=== PATIENT | female | born 1990 | race American Indian/Alaskan Native ===

== ENCOUNTER 2017-06-21 15:37 | Emergency (ER) | payer MEDICAID ==
[2017-06-21 17:54] LABS: Basophils % (Auto) 0.4 % (0.0-1.8); Eosinophils % (Auto) 0.9 % (0.0-4.3); Mean Corpuscular HGB Conc 33 % (30-34); Mean Corpuscular Hemoglobin 32 pg (28-32); Mean Corpuscular Volume 97 fl (79-97); Platelet Count 192 K/mm3 (140-440); Red Blood Count 4.02 M/mm3 (3.65-5.03); Red Cell Distribution Width 11.9 % (13.2-15.2); White Blood Count 5.7 K/mm3 (4.5-11.0)
[2017-06-21 18:17] LABS: Alanine Aminotransferase 12 units/L (7-56); Albumin 4.3 g/dL (3.9-5); Albumin/Globulin Ratio 1.6 %; Alkaline Phosphatase 77 units/L (35-129); Anion Gap 19 mmol/L; BUN/Creatinine Ratio 26; Blood Urea Nitrogen 13 mg/dL (7-17); Calcium 8.9 mg/dL (8.4-10.2); Carbon Dioxide 24 mmol/L (22-30); Chloride 103.3 mmol/L (98-107); Glucose 71 mg/dL (65-100); Potassium 3.9 mmol/L (3.6-5.0); Sodium 142 mmol/L (137-145)
[2017-06-21 20:32] LABS: Bacteria,Urine 1+ /HPF (Negative); Bilirubin,Urine NEG (Negative); Blood,Urine NEG (Negative); Ketones,Urine 20 mg/dL (Negative); Leukocyte Esterase,Urine LG (Negative); Mucus,Urine 3+ /HPF; Nitrite,Urine NEG (Negative); Urobilinogen,Urine < 2.0 mg/dL (<2.0)
--- NOTE | 2017-06-21 21:00 | Emergency Department Report ---
ED Seizure HPI - General Chief Complaint: Seizure Stated Complaint: SEIZURE Time Seen by Provider: 06/21/17 18:10 Source: patient, EMS Mode of arrival: Stretcher Limitations: Altered Mental Status - History of Present Illness Initial Comments: Patient with history of seizures beginning in December 2016. She has seen neurology and normal EEG. She denies any new stress. She has recently had her keppra increased. She felt odd last night with 6 seizures and then had one today at work. She feels funny with an aura after which she will have a seizure. Ativan has helped in the past. Complaint: seizure -: days(s) (2) Description of Episode: tonic-clonic movement -: minutes(s) (2) Witnessed:: Yes Trauma: No Seizure History: known seizure disorder, compliant with medication Place: home, work Possible Precipitating Event: stress Associated Symptoms: denies other symptoms Treatments Prior to Arrival: none - Related Data Home Medications Medication Instructions Recorded Confirmed Last Taken levETIRAcetam [Keppra] 500 mg PO 06/21/17 06/21/17 10:00 Previous Rx's Medication Instructions Recorded Last Taken Type Cephalexin [Keflex] 500 mg PO Q8HR 10 Days #30 cap 06/21/17 Unknown Rx LORazepam [Ativan] 1 mg PO BID 5 Days #10 tab 06/21/17 Unknown Rx Allergies Allergy/AdvReac Type Severity Reaction Status Date / Time Unable to Assess Allergy Unverified 06/21/17 15:48 ED Review of Systems ROS: Stated complaint: SEIZURE Other details as noted in HPI Constitutional: denies: chills, fever Eyes: denies: eye pain, eye discharge, vision change ENT: denies: ear pain, throat pain Respiratory: denies: cough, shortness of breath, wheezing Cardiovascular: denies: chest pain, palpitations Endocrine: no symptoms reported Gastrointestinal: denies: abdominal pain, nausea, diarrhea Genitourinary: denies: urgency, dysuria, discharge Musculoskeletal: denies: back pain, joint swelling, arthralgia Skin: denies: rash, lesions Neurological: headache, paresthesias. denies: weakness Psychiatric: denies: anxiety, depression Hematological/Lymphatic: denies: easy bleeding, easy bruising ED Past Medical Hx - Past Medical History Previous Medical History?: Yes Hx Seizures: Yes - Surgical History Past Surgical History?: No - Medications Home Medications: Home Medications Medication Instructions Recorded Confirmed Last Taken Type Cephalexin [Keflex] 500 mg PO Q8HR 10 Days #30 cap 06/21/17 Unknown Rx LORazepam [Ativan] 1 mg PO BID 5 Days #10 tab 06/21/17 Unknown Rx levETIRAcetam [Keppra] 500 mg PO 06/21/17 06/21/17 10:00 History ED Physical Exam - General Limitations: Altered Mental Status General appearance: alert, in no apparent distress - Head Head exam: Present: atraumatic, normocephalic - Eye Eye exam: Present: normal appearance - ENT ENT exam: Present: mucous membranes moist - Neck Neck exam: Present: normal inspection - Respiratory Respiratory exam: Present: normal lung sounds bilaterally. Absent: respiratory distress - Cardiovascular Cardiovascular Exam: Present: regular rate, normal rhythm. Absent: systolic murmur, diastolic murmur, rubs, gallop - GI/Abdominal GI/Abdominal exam: Present: soft, normal bowel sounds - Extremities Exam Extremities exam: Present: normal inspection - Back Exam Back exam: Present: normal inspection - Neurological Exam Neurological exam: Present: alert, oriented X3, CN II-XII intact, normal gait, motor sensory deficit, reflexes normal - Psychiatric Psychiatric exam: Present: normal affect, normal mood - Skin Skin exam: Present: warm, dry, intact, normal color. Absent: rash ED Course Vital Signs 06/21/17 06/21/17 06/21/17 14:18 14:30 15:40 Temperature 98.2 F Pulse Rate 69 90 Respiratory 7 L 18 Rate Blood Pressure 111/71 131/79 O2 Sat by Pulse 100 96 100 Oximetry 06/21/17 06/21/17 06/21/17 15:58 16:00 16:08 Temperature Pulse Rate 77 76 Respiratory 20 18 22 Rate Blood Pressure 123/75 133/77 O2 Sat by Pulse 100 100 Oximetry 06/21/17 06/21/17 06/21/17 16:15 16:30 16:45 Temperature Pulse Rate 62 69 61 Respiratory 18 17 14 Rate Blood Pressure 123/64 118/63 128/78 O2 Sat by Pulse 100 100 100 Oximetry 06/21/17 06/21/17 06/21/17 17:00 17:15 17:30 Temperature Pulse Rate 64 69 61 Respiratory 12 8 L 31 H Rate Blood Pressure 123/69 127/73 107/60 O2 Sat by Pulse 100 100 Oximetry 06/21/17 06/21/17 06/21/17 17:45 18:00 18:15 Temperature Pulse Rate 63 67 64 Respiratory 12 15 25 H Rate Blood Pressure 119/65 113/63 128/68 O2 Sat by Pulse 100 100 100 Oximetry 06/21/17 06/21/17 06/21/17 18:30 18:45 19:00 Temperature Pulse Rate 67 61 70 Respiratory 17 11 L 12 Rate Blood Pressure 132/68 113/68 113/62 O2 Sat by Pulse 100 100 96 Oximetry ED Medical Decision Making - Lab Data Result diagrams: 06/21/17 17:02 06/21/17 17:02 U/A with LE and bacteria. Otherwise labs are unremarkable. - Medical Decision Making Patient with recurrent seizures. She has had a normal EEG but seeing [facility] in 2 days, [address] Melanie Richardson. She has had a history of some emotional trauma but feels that has been dealt with. There is a consideration this is pseudoseizures as she is on an increased dose of keppra but still having seizures. Ativan has helped in the past. We will write ativan and did draw a keppra level that should be back in the morning. She is aware she can not drive and has not since her first seizure. Critical care attestation.: If time is entered above; I have spent that time in minutes in the direct care of this critically ill patient, excluding procedure time. ED Disposition Clinical Impression: Seizure UTI (urinary tract infection) Qualifiers: Urinary tract infection type: acute cystitis Hematuria presence: without hematuria Qualified Code(s): N30.00 - Acute cystitis without hematuria Disposition: -01 TO HOME OR SELFCARE Is pt being admited?: No Does the pt Need Aspirin: No Condition: Good Instructions: Recurrent Seizures Adult (ED), Urinary Tract Infection in Women ( ED) Prescriptions: Cephalexin [Keflex] 500 mg PO Q8HR 10 Days #30 cap LORazepam [Ativan] 1 mg PO BID 5 Days #10 tab Referrals: [facility] [Outside] - 3-5 Days Time of Disposition: 21:31
[2017-06-21 23:36] VITALS: BP 118/71
== END 2017-06-21 21:52 | disposition home or self-care (01) ==
LOC: ED 15:37
DX: G40.909 Epilepsy, unspecified, not intractable, without status epilepticus (principal); N30.00 Acute cystitis without hematuria
CPT/HCPCS: 36415; 80053; 80177; 81001; 82962; 85025